=== PATIENT | female | born 1965 | race Caucasian/White ===

== ENCOUNTER 2017-08-13 08:54 | Emergency (ER) | payer MEDICAID ==
[2017-08-13 09:13] VITALS: BP 148/98
[2017-08-13] MEDS: SULFAMETHOXAZOLE/TRIMETHOPRIM 1 TAB TABLET PO ONE (09:18)
[2017-08-13] MEDS ORDERED: SULFAMETHOXAZOLE/TRIMETHOPRIM 1 TAB TABLET ONE (09:18)
--- NOTE | 2017-08-13 09:23 | ERNOTE ---
Integumentary HPI - Narrative Date of Service: 08/13/17 - General Presenting Symptoms: abscess Time Seen by Provider: 08/13/17 08:59 Source: patient Exam Limitations: no limitations - Immun/Allergies/Home Medications Immunizations: IMMUNIZATION HX History of Influenza Vaccine No Home Medications: HOME MEDICATIONS Sulfamethoxazole/Trimethoprim [Bactrim Ds] 1 tab PO BID #28 tab 08/13/17 [Last Taken Unknown] - History of Present Illness Narrative: Patient presents to the ED with an abscess. She relates a long Hx of recurrent abscesses. She has had this abscess on her back for over a week. She has needed to have Bactrim in the past and has had them incised in the past. She relates that initially this abscess was much bigger but Epsom salt soaks caused it to drain pus and now it is much smaller but still causing pain. No fever. No CP or SOB. Location: Reports: other - left back Quality: Reports: painful Severity: moderate Exposure: Reports: other - Hx of same Modifying Factors - (Improves): Reports: other - Epsom salt soaks Associated Symptoms: Denies: blisters, fever Prior Treatment: Denies: recently seen Review of Systems - Review of Systems Constitutional: Absent: fever Respiratory: Absent: shortness of breath Cardiology: Absent: chest pain Neurological: Absent: weakness - Patient's Past Medical History Patient History - Medical: Anemia, Hypothyroidism Patient History - Cardiac/Respiratory: No pertinent hx Patient History - Cancer: No Hx of Cancer Patient History - Surgical Procedures: Total Knee Replacement Patient History - Other: None - Social History Living Situations: home Abuse History: No History of abuse Psych History: No pertinent hx Alcohol Use: none Drug Use: none - Immunizations History of Influenza Vaccine: No Physical Exam - Physical Exam General Appearance: Present: alert, no apparent distress Head Exam: Present: normal inspection Eye Exam: Normal inspection: bilateral Neck: Present: other - trachea midline Respiratory: Present: no respiratory distress, normal breath sounds, no accessory muscle use Cardiovascular/Chest: Present: regular rate, rhythm Back Exam: Present: other - 3cm area left back that has drained. There is skin redness and warmth approx 3cm c/w cellulitis. This area is mildly firm but no clear fluctuance noted. Extremity Exam: Present: normal range of motion Neurological Exam: Present: alert, normal mood/affect. Absent: motor weakness Skin Exam: Present: other - at this time there is some mild cellulitis here 3cm and an area that had drained but no other cclear abscess to drain at this point. No NecFasc ED Progress - Vital Signs Patient's Vital Signs:: I have reviewed the patient's vital signs. Vital Signs: Vital Signs 08/13/17 09:00 Temperature 36.1 C L Pulse Rate 88 Respiratory 12 Rate Blood Pressure 148/98 O2 Sat by Pulse 96 Oximetry - Progress/Reassessment Chief Complaint: Abscess Progress Note-Subjective: 08/13/17 09:19 I did offer to probe the area with an 18G needle to see if I could find any additional abscess cavity, however from my exam I felt this was highly unlikely. She declined this and wished to try ABx first with close f/u since she has been through this many times in the past. Stable, non-toxic, no distress. I discussed warning signs and reasons to return as well as the need for close f/u. Departure Clinical Impression: Cellulitis - Departure Disposition: Home self-care Condition: Stable Instructions: Cellulitis, Adult, [id number] Additional Instructions: Antibiotics as directed. Follow-up Wednesday for a re-check with your doctor. Return if you change your mind about exploring the area further for abscess, develop fever, swelling or if your condition worsens or changes in any way. Prescriptions: Sulfamethoxazole/Trimethoprim [Bactrim Ds] 1 tab PO BID #28 tab
== END 2017-08-13 09:30 | disposition home or self-care (01) ==
LOC: ER 08:54
DX: L03.312 Cellulitis of back [any part except buttock and flank] (principal)

== ENCOUNTER 2017-11-22 10:47 | Emergency (ER) | payer MEDICAID ==
--- NOTE | 2017-11-22 11:58 | ERNOTE ---
Integumentary HPI - Narrative Date of Service: 11/22/17 - General Presenting Symptoms: abscess Time Seen by Provider: 11/22/17 11:11 Source: patient, RN notes reviewed Exam Limitations: no limitations - Immun/Allergies/Home Medications Immunizations: IMMUNIZATION HX History of Influenza Vaccine No Allergies/Adverse Reactions: Allergies Allergy/AdvReac Type Severity Reaction Status Date / Time No Known Allergies Allergy Unverified 11/22/17 10:59 Home Medications: HOME MEDICATIONS Cephalexin 500 mg PO TID #21 tab 11/22/17 [Last Taken Unknown] HYDROcodone/ACETAMINOPHEN [[place] 5-325] 1 - 2 tab PO Q6H PRN #20 tab 11/22/17 [ Last Taken Unknown] Levothyroxine Sodium [Synthroid] 200 mcg PO DAILY #30 tab 11/22/17 [Last Taken Unknown] - History of Present Illness Narrative: Clayton is a 51 year old female who presents to the ED for "knots" on her back that have become painful in the last week. The lesions are located at her bra line. She reports having cysts in the past that have had to be drained and packed. She denies any history of MRSA. She also reports being off of her thyroid medication for several months d/t not having a PCP. She had been on 250 mcg of levothyroxine for a long time. Location: Reports: torso Quality: Reports: painful Exposure: Reports: no cause identified Prior Treatment: Denies: recently seen, currently on antibiotics Review of Systems - Review of Systems Constitutional: Present: fatigue. Absent: recent illness, fever, chills EYE: Present: no symptoms reported ENT: Present: no symptoms reported Respiratory: Absent: shortness of breath, cough Cardiology: Absent: chest pain, edema Gastrointestinal/Abdominal: Absent: nausea, vomiting, abdominal pain Genitourinary: Absent: other - possible Musculoskeletal: Absent: muscle pain, joint pain Skin: Present: lesions, lumps. Absent: rash Neurological: Absent: headache, dizziness/light-headedness Endocrine: Absent: intolerance to cold, unexplained weight gain Hematologic/Lymphatic: Absent: easy bruising, easy bleeding Psych: Absent: depressed - Patient's Past Medical History Patient History - Medical: Anemia, Hypothyroidism Patient History - Cardiac/Respiratory: No pertinent hx Patient History - Cancer: No Hx of Cancer Patient History - Surgical Procedures: Total Knee Replacement Patient History - Other: None LMP (females 10-50): Menopausal - Social History Living Situations: home Abuse History: No History of abuse Psych History: No pertinent hx Alcohol Use: none Drug Use: none - Immunizations History of Influenza Vaccine: No Physical Exam - Physical Exam General Appearance: Present: wd/wn, alert, no apparent distress Head Exam: Present: normal inspection Neck: Present: normal inspection, nontender, supple Respiratory: Present: no respiratory distress, normal breath sounds, no accessory muscle use, lungs clear Cardiovascular/Chest: Present: regular rate, rhythm, no murmur Extremity Exam: Present: normal inspection, normal range of motion Neurological Exam: Present: alert, oriented, normal mood/affect, no motor/ sensory deficits Skin Exam: Present: normal color, warm/dry, other - 3 painful, inflammed cysts midback ED Progress - Vital Signs Patient's Vital Signs:: I have reviewed the patient's vital signs. Vital Signs: Vital Signs 11/22/17 10:53 Temperature 36.4 C L Pulse Rate 81 Respiratory 12 Rate Blood Pressure 161/98 O2 Sat by Pulse 98 Oximetry - Progress/Reassessment Chief Complaint: Back Pain Progress:: Improved Procedures Back Anesthesia: Lidocaine w/ Epi I & D Prep: betadine prep Blade Size: 11 Findings and Actions: purulent drainage large, probed/breakup loculation, packed with guaze Complications: Pt yady procedure well Departure Clinical Impression: Abscess Hypothyroidism Qualifiers: Hypothyroidism type: unspecified Qualified Code(s): E03.9 - Hypothyroidism, unspecified - Departure Disposition: Home Follow Up Needed Condition: Stable Instructions: Incision and Drainage, Care After Additional Instructions: Repack wound daily until healed enough that you are not able to anymore Change dressing as needed You can take ibuprofen or Tylenol for mild pain Prescribed pain medication can cause constipation, drowsiness, upset stomach Have your thyroid checked soon Consider seeing a surgeon or dermatology if the cysts return Referrals: Patricia Tejeda APN [Primary Care Provider] - Prescriptions: Cephalexin 500 mg PO TID #21 tab HYDROcodone/ACETAMINOPHEN [[place] 5-325] 1 - 2 tab PO Q6H PRN #20 tab PRN Reason: Pain Levothyroxine Sodium [Synthroid] 200 mcg PO DAILY #30 tab
[2017-11-22 13:52] VITALS: BP 149/91
== END 2017-11-22 12:00 | disposition home or self-care (01) ==
LOC: ER 10:47
PROC: 0J970ZZ Drainage of Back Subcutaneous Tissue and Fascia, Open Approach (ICD-10-PCS; principal; 2017-11-22)
DX: L02.212 Cutaneous abscess of back [any part, except buttock and flank] (principal); E03.9 Hypothyroidism, unspecified